=== PATIENT | female | born 1990 ===

== ENCOUNTER 2017-04-15 12:08 | Observation (INO) | payer BC, MEDICAID ==
[2017-04-15 12:21] VITALS: BP 113/69; PULSE 70; RESP 18; TEMP 98.5; O2SAT 99
[2017-04-15] MEDS ORDERED: Iohexol 240 (50 ml) PO STA (12:37)
--- NOTE | 2017-04-15 12:40 | ED PDOC ---
HPI: Abdomen Time Seen by Provider: 04/15/17 12:28 Chief Complaint (Nursing): Abdominal Pain Chief Complaint (Provider): Abdominal Pain History Per: Patient History/Exam Limitations: no limitations Onset/Duration Of Symptoms: Days Current Symptoms Are (Timing): Still Present Severity: Mild Location Of Pain/Discomfort: RLQ, LLQ Quality Of Discomfort: "Pain" Associated Symptoms: denies: Fever, Nausea, Vomiting, Urinary Symptoms Exacerbating Factors: None Alleviating Factors: None Additional Complaint(s): Patient is a 27 year old female who presents to ED for abdominal pain and swelling, s/p cholecystectomy 2 weeks ago. Patient states during her initial follow up evaluated she felt well with no complaints, shortly after, approximately 1 week ago developed right sided abdominal swelling with pain. Art fever, nausea or vomiting, Last dose of Advil yesterday. Abnormal Vaginal Bleeding: No Past Medical History Reviewed: Historical Data, Nursing Documentation, Vital Signs Vital Signs: Last Vital Signs Temp 98.5 F 04/15/17 12:18 Pulse 70 04/15/17 12:18 Resp 18 04/15/17 12:18 BP 113/69 04/15/17 12:18 Pulse Ox 99 04/15/17 22:39 - Medical History PMH: No Chronic Diseases - Surgical History Surgical History: Cholecystectomy - Family History Family History: States: No Known Family Hx - Living Arrangements Living Arrangements: With Family - Home Medications Home Medications: Ambulatory Orders Medication Instructions Recorded Dicyclomine [Bentyl] 20 mg PO Q12 PRN #20 tab 04/15/17 - Allergies Allergies/Adverse Reactions: Allergies Allergy/AdvReac Type Severity Reaction Status Date / Time bupropion [From Wellbutrin] Allergy RASH Verified 04/15/17 12:18 morphine Allergy RASH Verified 04/15/17 13:03 Review of Systems ROS Statement: Except As Marked, All Systems Reviewed And Found Negative Constitutional: Negative for: Fever Cardiovascular: Negative for: Chest Pain Gastrointestinal: Positive for: Abdominal Pain. Negative for: Nausea, Vomiting , Diarrhea Genitourinary Female: Negative for: Dysuria, Hematuria Musculoskeletal: Negative for: Back Pain Physical Exam - Reviewed Nursing Documentation Reviewed: Yes Vital Signs Reviewed: Yes - Physical Exam Appears: Positive for: Non-toxic, No Acute Distress Skin: Positive for: Normal Color, Warm Eye Exam: Positive for: Normal appearance Neck: Positive for: Normal, Painless ROM Cardiovascular/Chest: Positive for: Regular Rate, Rhythm. Negative for: Murmur Respiratory: Positive for: Normal Breath Sounds. Negative for: Respiratory Distress Gastrointestinal/Abdominal: Positive for: Soft, Tenderness (BLQ). Negative for : Distended, Guarding, Rebound Extremity: Positive for: Normal ROM Neurologic/Psych: Positive for: Alert, Oriented - Laboratory Results Result Diagrams: 04/15/17 12:45 04/15/17 12:45 - ECG O2 Sat by Pulse Oximetry: 99 (RA) Pulse Ox Interpretation: Normal - CT Scan/US CT abd/pelvis Other Rad Studies (CT/US): Radiology Report Reviewed (Hypodensity involving the hepatic parenchyma surrounding the gallbladder fossa without evidence of focal fluid collection or extensive perihepatic fat stranding. This could represent postsurgical changes. 7 millimeter focus of enhancement in the left hepatic lobe could represent a hemangioma. This remains suboptimally evaluated. Follow -up with ultrasound and/or MRI should be obtained. Presumed corpus luteum cyst on the left. ) Medical Decision Making Medical Decision Making: Time: 1235 Initial impression: Abdominal pain Initial plan: -- CT-abdomen -- CMP -- Urine preg -- Urine dip -- PT/PTT -- Morphine -- ED obs -- U/A 18:00 Reevaluation Pt c/o return of pain, notified that pelvic ultrasound pending. Scribe Attestation: Documented by Samantha Adams acting as a scribe for Colette Barnett MD MD Scribe Attestation: All medical record entries made by the Scribe were at my direction and personally dictated by me. I have reviewed the chart and agree that the record accurately reflects my personal performance of the history, physical exam, medical decision making, and the department course for this patient. I have also personally directed, reviewed, and agree with the discharge instructions and disposition. ED OBSERVATION Date of observation admission: 04/15/17 Time of observation admission: 12:37 - Observation admission statement Patient is being placed in observation because:: Need for additional diagnostics to rule-out acute or life threatening condition - Goals of Observation Goals of observation are:: Resolution of symptoms Disposition - Clinical Impression Clinical Impression: Abdominal pain - Disposition Disposition: Transfer of Care Disposition Time: 19:00 Condition: STABLE Patient Signed Over To: Avinash Moss Handoff Comments: Pending ultrasound.
[2017-04-15] MEDS ORDERED: Iohexol 240 (50 ml) ONE (12:58)
[2017-04-15 13:19] LABS: BASO # 0.1 K/uL (0.0-0.2); BASO % 0.7 % (0.0-2.0); EOS # 0.7 K/uL (0.0-0.7); EOS % 4.4 % (0.0-4.0); HEMATOCRIT 35.6 % (34.0-47.0); LYMPH # 3.3 K/uL (1.0-4.3); LYMPH % 21.4 % (20.0-40.0); MEAN CELL VOLUME 71.4 fl (81.0-99.0); MEAN CORPUSCULAR HEMOGLOBIN 22.5 pg (27.0-31.0); MEAN CORPUSCULAR HGB CONC 31.5 g/dL (33.0-37.0); MEAN PLATELET VOLUME 8.7 fl (7.2-11.7); MONO % 6.3 % (0.0-10.0); NEUT # 10.3 K/uL (1.8-7.0); NEUT % 67.2 % (50.0-75.0); RED CELL DISTRIBUTION WIDTH 15.9 % (11.5-14.5); WHITE BLOOD COUNT 15.3 K/uL (4.8-10.8)
[2017-04-15 13:20] LABS: ALB/GLOB RATIO 1.2 (1.0-2.1); ALKALINE PHOSPHATASE 70 U/L (38-126); ALT/SGPT 58 U/L (9-52); AST/SGOT 28 U/L (14-36); BILIRUBIN,TOTAL 0.5 mg/dl (0.2-1.3); BLOOD UREA NITROGEN 14 mg/dl (7-17); CALCIUM 9.3 mg/dL (8.4-10.2); CARBON DIOXIDE 24 mmol/L (22-30); CHLORIDE 104 mmol/L (98-107); GFR AFRICAN-AMERICAN > 60; GLUCOSE,RANDOM 102 mg/dL (65-105); POTASSIUM 3.7 MMOL/L (3.6-5.0); SODIUM 140 mmol/l (132-148); TOTAL PROTEIN 7.5 G/DL (6.3-8.2)
[2017-04-15 13:25] LABS: PARTIAL THROMBOPLASTIN TIME 28.1 SECONDS (23.3-32.5)
[2017-04-15 13:40] LABS: RBC URINE 1 /hpf (0-3); URINE BACTERIA RARE (<OCC); URINE BILIRUBIN NEGATIVE (NEGATIVE); URINE BLOOD NEGATIVE (NEGATIVE); URINE COLOR YELLOW (YELLOW); URINE GLUCOSE (UA) NEG (Normal); URINE KETONE NEGATIVE (NEGATIVE); URINE LEUKOCYTE ESTERASE TRACE Leu/uL (Negative); URINE PROTEIN NEGATIVE (NEGATIVE); URINE UROBILINOGEN 0.2-1.0 mg/dL (0.2-1.0); WBC URINE 3 /hpf (0-5)
[2017-04-15] MEDS ORDERED: Sodium Chloride 0.9% 50 ML IV ONE (15:06)
[2017-04-15] MEDS ORDERED: Iohexol 300 100 ML IJ ONE (15:06)
--- NOTE | 2017-04-15 15:51 | CT ---
PROCEDURE: CT Abdomen and Pelvis with contrast HISTORY: BLQ pain, 2 weeks s/p lap ladan COMPARISON: None. TECHNIQUE: Contrast dose: 90 mL. Radiation dose: Total exam DLP = 902.33 mGy-cm. This CT exam was performed using one or more of the following dose reduction techniques: Automated exposure control, adjustment of the mA and/or kV according to patient size, and/or use of iterative reconstruction technique. FINDINGS: LOWER THORAX: Mild bibasilar atelectatic changes noted. The heart is not enlarged. There is no significant pericardial effusion. LIVER: 7 millimeter enhancing focus in the left hepatic lobe could represent a hemangioma, sub optimally evaluated on the current CT. GALLBLADDER AND BILE DUCTS: Gallbladder not seen. Hypodensity seen at the gallbladder fossa. This could represent postsurgical changes (given patient history). No focal fluid collection No intra or extrahepatic biliary ductal dilatation. PANCREAS: Unremarkable. No gross lesion or ductal dilatation. SPLEEN: Unremarkable. ADRENALS: Unremarkable. No mass. KIDNEYS AND URETERS: Unremarkable. No hydronephrosis. No solid mass. VASCULATURE: Unremarkable. No aortic aneurysm. BOWEL: Unremarkable. No obstruction. No gross mural thickening. APPENDIX: No CT evidence of acute appendicitis. PERITONEUM: Small amount of free fluid in the cul-de-sac. LYMPH NODES: Scattered pelvic sidewall, inguinal region and right lower quadrant mesenteric lymph nodes. BLADDER: Unremarkable. REPRODUCTIVE: Please note that evaluation of gynecologic organs is not optimal on CT imaging. Possible corpus luteum cyst (with enhancing rim) on the left. Incidental note is made of retroverted uterus. BONES: No acute fracture. OTHER FINDINGS: Raman postsurgical changes in the anterior soft tissues. IMPRESSION: Hypodensity involving the hepatic parenchyma surrounding the gallbladder fossa without evidence of focal fluid collection or extensive perihepatic fat stranding. This could represent postsurgical changes. 7 millimeter focus of enhancement in the left hepatic lobe could represent a hemangioma. This remains suboptimally evaluated. Follow-up with ultrasound and/or MRI should be obtained. Presumed corpus luteum cyst on the left.
--- NOTE | 2017-04-15 19:23 | ED PDOC ---
- Laboratory Results Result Diagrams: 04/15/17 12:45 04/15/17 12:45 - ECG O2 Sat by Pulse Oximetry: 99 (RA) Pulse Ox Interpretation: Normal - CT Scan/US Pelvis Ultrasound Other Rad Studies (CT/US): Interpreted By Me, Read By Radiologist, Radiology Report Reviewed Medical Decision Making Medical Decision Makin:00 Patient transferred over to provider from Colette Barnett MD. Pending pelvis ultrasound. 21:29 Pelvis Ultrasound Results FINDINGS: Limitations: Evaluation is limited by the patient's body habitus, incomplete distention of the bladder, and the lack of endovaginal imaging. Uterus/cervix: The uterus is normal in size. The endometrial stripe is suboptimally delineated but grossly within normal limits, measuring approximately 4 mm in thickness. No endometrial or myometrial lesion is identified. Right ovary: The right ovary is not identified. No right adnexal mass is visualized. Left ovary: The left ovary is not identified. No left adnexal mass is visualized. Free fluid: No pelvic free fluid is visualized. IMPRESSION: Limited evaluation as described above. No evident acute abnormality. 22:10 Upon provider reevaluation, patient's condition has improved, is medically stable, and requires no further treatment in the emergency department at this time. Patient will be discharged home with a prescription for Bentyl. Counseling was provided and all questions were answered regarding diagnosis and need for follow up with gastrointestinal specialist tomorrow. Patient is in agreement with provider's discharge plan and was prompted to return if their symptoms persist or worsen. Clinical Impression: Abdominal pain Scribe Attestation: Documented by Daniel Silver, acting as a scribe for Avinash Moss MD. Provider Scribe Attestation: All medical record entries made by the Scribe were at my direction and personally dictated by me. I have reviewed the chart and agree that the record accurately reflects my personal performance of the history, physical exam, medical decision making, and the department course for this patient. I have also personally directed, reviewed, and agree with the discharge instructions and disposition. Disposition - Clinical Impression Clinical Impression: Abdominal pain - POA Present On Arrival: None - Disposition Disposition: Routine/Home Disposition Time: 22:10 Condition: STABLE
--- NOTE | 2017-04-16 13:08 | US ---
HISTORY: Both lower quadrant pain COMPARISON: None available. TECHNIQUE: Transabdominal pelvic ultrasound was performed. FINDINGS: UTERUS: Measures 7.1 x 3.4 x 6.4 cm. Retroverted, normal in size and appearance. No fibroid or other mass lesion seen. ENDOMETRIUM: Measures 4.0 mm in diameter. Unremarkable. CERVIX: No cervical abnormality identified. RIGHT OVARY: Not visualized. LEFT OVARY: Not visualized. FREE FLUID: No significant free fluid noted. OTHER FINDINGS: None. IMPRESSION: Limited evaluation due to patient's body habitus, incomplete distention of the urinary bladder and lack of endovaginal examination. Allowing for this, no acute findings. A preliminary report was provided by [facility].
== END 2017-04-15 22:13 | disposition home or self-care (01) ==
LOC: H.ER 12:08 → H.EROBSV 12:38
PROVIDERS: ADMIT Emergency Medicine; ATTEND Emergency Medicine
DX: R10.9 Unspecified abdominal pain (principal)